=== PATIENT | female | born 1955 | race Caucasian/White ===

== ENCOUNTER 2021-06-16 08:07 | Outpatient (REF) | payer BC, SELFPAY ==
[2021-06-16 08:38] LABS: MANUAL DIFF FLAG NO
[2021-06-16 09:33] LABS: Basophils Percent Auto 0.3 % (0-2); Eosinophils Absolute Auto 0.2 X10*3/uL (0.0-0.4); Eosinophils Percent Auto 2.6 % (0-4); Hematocrit 43.2 % (37.0-47.0); Hemoglobin 13.5 g/dl (12.0-16.0); Imm Gran Abs Auto 0.02 X10*3/uL (0.00-0.03); Imm Gran Pct Auto 0.3 % (0.0-0.4); Lymphocytes Absolute Auto 2.4 X10*3/uL (1.2-4.9); Lymphocytes Percent Auto 34.1 % (20-40); Mean Corpuscular HGB Conc 31.3 g/dl (31.0-35.0); Mean Corpuscular Hemoglobin 28.2 pg (27.0-33.0); Mean Corpuscular Volume 90.4 fL (80.0-98.0); Mean Platelet Volume 11.3 fL (9.4-12.3); Monocytes Absolute Auto 0.6 X10*3/uL (0.1-1.2); Monocytes Percent Auto 8.1 % (2-11); Neutrophils Absolute Auto 3.8 x10*3/uL (2.0-8.3); Neutrophils Percent Auto 54.6 % (45-73); Platelet Count 199 X10*3/uL (160-400); Red Blood Count 4.78 X10*6/uL (4.20-5.50); Red Cell Distribution Width 13.7 % (11.0-16.0)
[2021-06-16 09:59] LABS: Alanine Aminotransferase 14 U/L (0-31); Albumin Level 4.1 g/dL (3.5-5.0); Alkaline Phosphatase 54 U/L (39-117); Anion Gap 11 (12-20); Aspartate Amino Transferase 17 U/L (5-31); Bilirubin Total 0.7 mg/dL (0.0-1.0); Blood Urea Nitrogen 15 mg/dL (9-16); Calcium 9.4 mg/dL (8.4-10.2); Carbon Dioxide 29 mmol/L (22-29); Chloride 106 mmol/L (96-108); Cholesterol 175 mg/dL; Estimated Glomerular Filt Rate > 60; Glucose Fasting 86 mg/dL (60-99); HDL Cholesterol 41 mg/dL; LDL Cholesterol Calculated 117 mg/dl; Potassium 4.6 mmol/L (3.3-5.1); Sodium 141 mmol/L (135-145); Total Protein 7.3 g/dL (6.5-8.0); Triglycerides 85 mg/dL
[2021-06-16 10:14] LABS: Vitamin D 25-OH Total 31.9 ng/mL (>30)
== END 2021-06-16 08:08 | disposition home or self-care (01) ==
LOC: HO.LAB 08:07
PROVIDERS: PCP Internal Medicine; Visit Provider Internal Medicine
DX: Z00.00 Encounter for general adult medical examination without abnormal findings (principal); E55.9 Vitamin D deficiency, unspecified
CPT/HCPCS: 36415; 80053; 80061; 82306; 85025

== ENCOUNTER 2022-07-27 08:49 | Outpatient (REF) | payer BC, SELFPAY ==
[2022-07-27 12:16] LABS: MANUAL DIFF FLAG NO
[2022-07-27 12:25] LABS: Basophils Percent Auto 0.2 % (0-2); Eosinophils Absolute Auto 0.1 X10*3/uL (0.0-0.4); Hematocrit 42.9 % (37.0-47.0); Hemoglobin 13.6 g/dl (12.0-16.0); Imm Gran Abs Auto 0.01 X10*3/uL (0.00-0.03); Imm Gran Pct Auto 0.2 % (0.0-0.4); Lymphocytes Absolute Auto 2.5 X10*3/uL (1.2-4.9); Lymphocytes Percent Auto 38.5 % (20-40); Mean Corpuscular HGB Conc 31.7 g/dl (31.0-35.0); Mean Corpuscular Hemoglobin 28.6 pg (27.0-33.0); Mean Corpuscular Volume 90.3 fL (80.0-98.0); Monocytes Absolute Auto 0.5 X10*3/uL (0.1-1.2); Monocytes Percent Auto 8.1 % (2-11); Neutrophils Absolute Auto 3.3 x10*3/uL (2.0-8.3); Platelet Count 207 X10*3/uL (160-400); Red Blood Count 4.75 X10*6/uL (4.20-5.50); Red Cell Distribution Width 13.7 % (11.0-16.0); White Blood Count 6.4 X10*3/uL (4.8-10.8)
[2022-07-27 12:47] LABS: Alanine Aminotransferase 16 U/L (0-31); Alkaline Phosphatase 58 U/L (39-117); Anion Gap 11 (12-20); Aspartate Amino Transferase 17 U/L (5-31); Bilirubin Total 0.6 mg/dL (0.0-1.0); Blood Urea Nitrogen 12 mg/dL (9-16); Calcium 9.1 mg/dL (8.4-10.2); Carbon Dioxide 28 mmol/L (22-29); Chloride 109 mmol/L (96-108); Cholesterol 167 mg/dL; Estimated Glomerular Filt Rate > 60; Glucose Fasting 88 mg/dL (60-99); HDL Cholesterol 36 mg/dL; LDL Cholesterol Calculated 108 mg/dl; Potassium 4.6 mmol/L (3.3-5.1); Sodium 143 mmol/L (135-145); Total Protein 6.9 g/dL (6.5-8.0); Triglycerides 115 mg/dL
== END 2022-07-27 08:50 | disposition home or self-care (01) ==
LOC: HO.HMGCLDS 08:49
PROVIDERS: PCP Internal Medicine; Visit Provider Internal Medicine
DX: Z00.00 Encounter for general adult medical examination without abnormal findings (principal); Z20.2 Contact with and (suspected) exposure to infections with a predominantly sexual mode of transmission
CPT/HCPCS: 36415; 80053; 80061; 85025

== ENCOUNTER 2022-08-26 11:13 | Outpatient (REF) | payer BC, SELFPAY ==
--- NOTE | ~2022-08-26 | XR_ITS ---
EXAMINATION: XR CHEST CLINICAL INFORMATION: SOB COMPARISON: None available. TECHNIQUE: 2 views of the chest were obtained. FINDINGS: The lungs are well-expanded and clear. The heart size and pulmonary vascularity is normal. There is mild S-shaped scoliosis of dorsolumbar spine. No lytic or sclerotic process. There is evidence of previous cholecystectomy. XR/XR chest 2V IMPRESSION: Unremarkable chest exam.
== END 2022-08-26 11:14 | disposition home or self-care (01) ==
LOC: HO.XRAY 11:13
PROVIDERS: PCP Internal Medicine; Visit Provider Internal Medicine
DX: R06.02 Shortness of breath (principal); U07.1 COVID-19
CPT/HCPCS: 71046

== ENCOUNTER 2023-03-21 14:09 | Outpatient (REF) | payer BC, SELFPAY ==
--- NOTE | ~2023-03-21 | XR_ITS ---
EXAMINATION: XR FOOT, LEFT CLINICAL INFORMATION: Pain COMPARISON: None available. TECHNIQUE: AP, lateral, and oblique views of the left foot. FINDINGS: No acute visible fracture dislocation. Multi joint arthritic changes. Plantar calcaneal heel spur. Achilles tendon enthesopathy. Spurring the dorsal midfoot. Joint spaces and alignment are otherwise maintained. Soft tissues are unremarkable. XR/XR foot LT min 3V IMPRESSION: 1. No acute visible fracture dislocation. 2. Multi joint arthritic changes with plantar calcaneal heel spur and Achilles tendon enthesopathy.
== END 2023-03-21 14:10 | disposition home or self-care (01) ==
LOC: HO.HMGCX 14:09
PROVIDERS: PCP Internal Medicine; Visit Provider Internal Medicine
DX: M79.672 Pain in left foot (principal)
CPT/HCPCS: 73630

== ENCOUNTER 2023-07-25 09:49 | Outpatient (REF) | payer BC, SELFPAY ==
[2023-07-25 13:37] LABS: MANUAL DIFF FLAG NO
[2023-07-25 13:42] LABS: Basophils Percent Auto 0.3 % (0-2); Eosinophils Absolute Auto 0.2 X10*3/uL (0.0-0.4); Eosinophils Percent Auto 2.6 % (0-4); Hematocrit 42.1 % (37.0-47.0); Hemoglobin 13.2 g/dl (12.0-16.0); Imm Gran Abs Auto 0.01 X10*3/uL (0.00-0.03); Imm Gran Pct Auto 0.1 % (0.0-0.4); Lymphocytes Absolute Auto 2.7 X10*3/uL (1.2-4.9); Lymphocytes Percent Auto 37.3 % (20-40); Mean Corpuscular HGB Conc 31.4 g/dl (31.0-35.0); Mean Corpuscular Hemoglobin 28.6 pg (27.0-33.0); Mean Corpuscular Volume 91.3 fL (80.0-98.0); Mean Platelet Volume 11.4 fL (9.4-12.3); Monocytes Absolute Auto 0.4 X10*3/uL (0.1-1.2); Neutrophils Percent Auto 53.7 % (45-73); Platelet Count 193 X10*3/uL (160-400); Red Blood Count 4.61 X10*6/uL (4.20-5.50); Red Cell Distribution Width 14.3 % (11.0-16.0); White Blood Count 7.4 X10*3/uL (4.8-10.8)
[2023-07-25 14:27] LABS: Alanine Aminotransferase 17 U/L (0-31); Albumin Level 3.7 g/dL (3.5-5.0); Alkaline Phosphatase 55 U/L (39-117); Anion Gap 9 (12-20); Aspartate Amino Transferase 18 U/L (5-31); Bilirubin Total 0.4 mg/dL (0.0-1.0); Blood Urea Nitrogen 13 mg/dL (9-16); Calcium 9.1 mg/dL (8.4-10.2); Carbon Dioxide 26 mmol/L (22-29); Chloride 110 mmol/L (96-108); Cholesterol 181 mg/dL (<200); Estimated Glomerular Filt Rate > 60; Glucose Random 89 mg/dL (60-115); Potassium 4.1 mmol/L (3.3-5.1); Sodium 141 mmol/L (135-145); Total Protein 7.2 g/dL (6.5-8.0)
== END 2023-07-25 09:50 | disposition home or self-care (01) ==
LOC: HO.HMGCLDS 09:49
PROVIDERS: PCP Internal Medicine; Visit Provider Internal Medicine
DX: I10 Essential (primary) hypertension (principal); J06.9 Acute upper respiratory infection, unspecified
CPT/HCPCS: 36415; 80053; 82465; 85025

== ENCOUNTER 2023-11-18 07:25 | Day surgery (SDC) | payer BC, SELFPAY ==
--- NOTE | 2023-11-17 12:18 | P.CONAN_ITS ---
Documented by User: Celi Cantrell NP 11/17/23 12:18 HPI - Anesthesia Eval Consult details Narrative: 68yo F for Colonoscopy [facility] Past Medical History Medical History Seasonal allergies Hx of hemorrhoids HTN (hypertension) Surgical History Surgical History Hx of cholecystectomy Hx of tonsillectomy H/O colonoscopy Social History Social History Patient Tobacco Use Status: Never used Tobacco Use of substances other than those prescribed or required for medical reasons: No Are you DNR?: No Advance Directives: No Advance Directives Information Provided: Yes Meds Allergies Allergy/AdvReac Type Severity Reaction Status Date / Time No Known Allergies Allergy Verified 11/18/23 07:39 seasonal Allergy Unknown Itchy Eyes Uncoded 11/18/23 07:39 Home Medications ?Medication ?Instructions ?Recorded ?Confirmed ?Last Taken ?Type lisinopril 5 mg tablet 5 mg PO DAILY 11/17/23 11/17/23 Unknown History multivitamin 1 tab PO DAILY 11/17/23 11/17/23 Unknown History Assessment and Plan Assessment Anesthesia Assessment: Chart Reviewed Documented by User: Cruzito Bates MD 11/18/23 08:48 [facility] Past Medical History Medical History Seasonal allergies Hx of hemorrhoids HTN (hypertension) Family History Family history of problems with anesthesia: No Surgical History Surgical History Hx of cholecystectomy Hx of tonsillectomy H/O colonoscopy History of Problems with Anesthesia: No Social History Social History Patient Tobacco Use Status: Never used Tobacco Use of substances other than those prescribed or required for medical reasons: No Are you DNR?: No Advance Directives: No Advance Directives Information Provided: Yes Meds Allergies Allergy/AdvReac Type Severity Reaction Status Date / Time No Known Allergies Allergy Verified 11/18/23 07:39 seasonal Allergy Unknown Itchy Eyes Uncoded 11/18/23 07:39 Home Medications ?Medication ?Instructions ?Recorded ?Confirmed ?Last Taken ?Type lisinopril 5 mg tablet 5 mg PO DAILY 11/17/23 11/17/23 Unknown History multivitamin 1 tab PO DAILY 11/17/23 11/17/23 Unknown History Exam Airway Mallampati Class: II TM Dist: <=3cm Neck ROM: Full Loose/Missing/Broken Teeth: No Heart: ok Lungs: ok Assessment and Plan Assessment Anesthesia Assessment: Anesthesia Plan Discussed Final Anesthetic Review Family History of Problems with Anesthesia: No History of Problems with Anesthesia: No NPO: Yes ASA Class: II Final Preanesthetic Review: No Changes in Pt Med Stat, Meds/Allgs Chart Reviewed, Consent Obtained/Reviewed and Anes Risks/Benef Reviewed Patient Risk: Intermediate Procedure Risk: Low Anesthetic Plan Anesthetic Plan: MAC: and Agree w/ Assess. and Plan Disposition: Standard PACU
[2023-11-18 07:40] VITALS: BMI 34.9
[2023-11-18 07:49] VITALS: BP 127/72; PULSE 76; RESP 16; TEMP 36.2; O2SAT 94
[2023-11-18] MEDS: Lactated Ringers 1,000 ML 100 ML IVCONT (07:57)
--- NOTE | 2023-11-18 08:32 | MHC.SHP ---
Pre-Procedural Eval Section A - 24 Hr Update-Section A only Date of Service: 11/18/23 The patient is an INPATIENT: No Changes since office visit: No Cold of Flu in the past 2 weeks, No New Medical Problems, No Changes in Medication and No Patient answered all questions The patient has been examined within 24 hours of the surgical procedure. The History & Physical has been completed within 30 days and I have reviewed it.: No Section B - Complete if H&P > 30 days Chief Complaint: Encounter for screening for malignant neoplasm of Allergies: Allergies Allergy/AdvReac Type Severity Reaction Status Date / Time No Known Allergies Allergy Verified 11/18/23 07:39 seasonal Allergy Unknown Itchy Eyes Uncoded 11/18/23 07:39 Plan I have reviewed the history and physical and performed a pertinent physical examination on my patient. No changes have occurred unless specified. Time Spent With Patient Time: Total time managing care of this patient today ____ minutes.
[2023-11-18 09:11] VITALS: BP 95/55; PULSE 73; RESP 18; TEMP 36.2; O2SAT 95
[2023-11-18 09:16] VITALS: BP 123/76; PULSE 68; RESP 18; O2SAT 96
[2023-11-18 09:21] VITALS: BP 132/73; PULSE 68; RESP 18; O2SAT 97
[2023-11-18 09:26] VITALS: BP 134/79; PULSE 66; RESP 18; TEMP 36.3; O2SAT 96
--- NOTE | 2023-11-18 09:26 | OP_ITS ---
DATE OF SERVICE: 11/18/2023 SURGEON: Braydon Ashton MD INDICATIONS: Colon cancer screening. PREOPERATIVE DIAGNOSIS: POSTOPERATIVE DIAGNOSIS: PROCEDURE PERFORMED: Colonoscopy to the terminal ileum. ESTIMATED BLOOD LOSS: COMPLICATIONS: ANESTHESIA: Medications, monitored anesthesia care. ASSISTANTS: SPECIMENS: DESCRIPTION OF PROCEDURE: A history and physical performed. The risks and benefits of the procedure were explained to the patient. Informed consent was obtained. The patient was placed in the left lateral decubitus position. A digital rectal exam was performed and was found to be normal. The Olympus pediatric video colonoscope was introduced into the rectum and advanced to the cecum. The cecum was identified by transillumination, palpation, and identification of ileocecal valve. Examination was performed. The scope was removed. She tolerated the procedure well and returned to recovery area in stable condition. FINDINGS: The terminal ileum was normal. The visualized colonic mucosa was normal. The quality of the prep was good. No polyps were identified. Retroflexed examination showed some hypertrophic anal papillae. IMPRESSION: Normal colonoscopy. RECOMMENDATION: 1. Follow up as needed. 2. Repeat colonoscopy is recommended in 5 years because of family history of colon cancer. MD BETTE Ramirez/DIANAL / [id number]
== END 2023-11-18 09:39 | disposition home or self-care (01) ==
PROVIDERS: PCP Internal Medicine; Visit Provider Internal Medicine Gastroenterology
PROC: 0DJD8ZZ Inspection of Lower Intestinal Tract, Via Natural or Artificial Opening Endoscopic (ICD-10-PCS; CPT 45378; principal; 2023-11-18 09:00)
DX: Z12.11 Encounter for screening for malignant neoplasm of colon (principal); Z80.0 Family history of malignant neoplasm of digestive organs; K62.89 Other specified diseases of anus and rectum; I10 Essential (primary) hypertension; J30.2 Other seasonal allergic rhinitis; Z90.49 Acquired absence of other specified parts of digestive tract
CPT/HCPCS: 45378; J2704

== ENCOUNTER 2024-03-03 13:46 | Outpatient (REF) | payer BC, SELFPAY | END 2024-03-03 13:47 | disposition home or self-care (01) | LOC: HO.US 13:46 | PROVIDERS: PCP Internal Medicine; Visit Provider Internal Medicine | DX: R10.31 Right lower quadrant pain (principal) | CPT/HCPCS: 76775 ==

== ENCOUNTER 2024-03-24 09:03 | Outpatient (REF) | payer BC, SELFPAY ==
[2024-03-24 10:15] LABS: Erythrocyte Sedimentation Rate 12 MM/HR (0-20)
[2024-03-24 10:26] LABS: Anion Gap 12 (12-20); Blood Urea Nitrogen 14 mg/dL (9-16); C Reactive Protein 1.06 mg/dL (< or = 0.50); Calcium 9.3 mg/dL (8.4-10.2); Carbon Dioxide 24 mmol/L (22-29); Chloride 109 mmol/L (96-108); Estimated Glomerular Filt Rate > 60; Glucose Random 95 mg/dL (60-115); Potassium 4.3 mmol/L (3.3-5.1); Sodium 141 mmol/L (135-145); Uric Acid 5.6 mg/dL (2.4-5.7)
== END 2024-03-24 09:04 | disposition home or self-care (01) ==
LOC: HO.LAB 09:03
PROVIDERS: PCP Internal Medicine; Visit Provider Internal Medicine
DX: M25.572 Pain in left ankle and joints of left foot (principal)
CPT/HCPCS: 36415; 80048; 84550; 85652; 86140

== ENCOUNTER 2025-01-20 12:50 | Outpatient (AMB) | payer BC, SELFPAY ==
--- OUTSIDE RECORDS SUMMARY | 2023-11-18 05:00 | XMS_ITS ---
Author Organization [facility] Address [address] [place] [address] Care Team Providers Care Back Winder Name Role Phone Katelyn (RETIRED) Geovanny GALLEGO Primary Care Provide r Unavailable Braydon Ashton Jr REASON FOR VISIT screening,fam hx colon ca Encounters Encounter Location Date Provider Diagnosis [facility] [place] [address] [place] [phone] 11/18/2023 Braydon Ashton Jr Colon cancer screening Z12.11 and Family history of colon cancer Z80.0 Assessments Encounter Date Diagnosis (ICD Code) Assessment Notes Treatment Notes Treatment Clinical Notes Section Notes 11/18/2023 Colon cancer screening (ICD-10 - Z12.11) 11/18/2023 Family history of colon cancer (ICD-10 - Z80.0) Plan Of Treatment No Information Progress Notes * FLORIDALMA TORRES RDOB:[birth year] (69 yo F)Acc No.[id number]:11/18/2023 COLON WITH MAC Patient: Jody GONSALVESVEGA FLORIDALMA Zamorano Provider: Aster Ashton MD :1955 A ge:68 Y S ex:Female Date:11/18/2023 Address: [address] [facility] Pcp:Geovanny Zepeda (RETIRED )MD Subjective: * Chief [...] 0 11/18/2023 Generated for Cesar gray/Abigail/Shaziaitting on: 0 01/20/2025 05:36 PM EDT
--- OUTSIDE RECORDS SUMMARY | 2024-07-13 04:30 | XMS_ITS ---
Author Organization [facility] Address [address] [place] [address] Care Team Providers Care Internet Specialist Name Role Phone Geovanny Zepeda MD Primary Care Provider Luh Kulkarni [phone] Encounters Encounter Location Date Provider Diagnosis [facility] [address] [facility] [place] [address] 07/13/2024 Luh Tamayo Plan Of Treatment No Information Progress Notes * Arnaldo TORRESOB: [birth year] (69 yo F)Acc No.[id number]:07/13/2024 Progress Notes Patient: Savanah OLIVEROS Provider: Ruiz Tamayo DPM :1955 A ge:68 Y S ex:Female Date:07/13/2024 Address:[address], [place] Pcp:Geovanny Zepeda MD Subjective: * Chief Complaints: [...] DPM Date: 0 07/13/2024 Generated for Printi ng/Faxing/eTransmitting on: 0 01/20/2025 05:35 PM EDT
--- OUTSIDE RECORDS SUMMARY | 2024-07-20 05:30 | XMS_ITS ---
Author Organization [facility] Address [address] [facility] [place] [address] Care Team Providers Care Farm Equipment Operator Name Role Phone Geovanny Zepeda MD Primary Care Provider Luh Kulkarni Unavailable [phone] Allergies Allergen (clinical drug ingredient) Drug/Non Drug [...] Negative Encounters Encounter Location Date Provider Diagnosis [facility] [address] [place] [address] 07/20/2024 Luh Tamayo Plan Of Treatment No Information Progress Notes * LIONELVEGAAixaLilaOB: [birth year] (69 yo F)Acc No.[id number]:07/20/2024 Progress Notes Patient: Jody GONSALVESVEGASavanah Provider: Ruiz Tamayo DPM :1955 A ge:68 Y S ex:Female Date:07/20/2024 Address: [address], [place] , [place] Pcp:Geovanny Zepeda MD Subjective: * Chief Complaints: [...] enies. C ardiovascular: Pacemaker d enies. M SUPERVISOR RESEARCH KENNEL d enies. W PW d enies. C [...] 1. 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
--- NOTE | 2025-01-20 08:27 | A.OFFPC_ITS ---
Vital Signs 01/20/25 13:09 Height 5 ft 4.5 in Weight 219 lb BMI 37.0 BP 134/80 Blood Pressure Location Rt brachial Position Sitting Pulse 87 Pulse Source Pulse Oximeter Temp 98.1 F Temp Source Temporal Artery Scan Pulse Oximetry (%) 98 Oxygen Delivery Method Room Air Intake Visit Reasons: Annual Device Repair Technician Required: No Accompanied by: Self / Same As Patient Allergies No Known Allergies Allergy (Verified 01/20/25 08:27) seasonal Allergy (Unknown, Uncoded 11/18/23 07:39) Itchy Eyes Medication List - Last Reconciled 01/24/25 by LUCY Constantino fluticasone propionate 50 mcg/actuation (Flonase Allergy Relief) 2 sprays intranasal DAILY lisinopril 5 mg PO DAILY multivitamin 1 tab PO DAILY tizanidine 4 mg PO BEDTIME PRN Tobacco use date assessed: 01/20/25 Fall risk assessment: No Falls in past year Last assessed Fall Risk: 01/20/25 Dental Screening Dental Screen Date: 01/20/25 Did you have a dental visit in the last 12 months?: Yes Did you have a dental problem in the last 6 months where you did not have access to dental care?: No HPI HPI Comments History of Present Illness Details The patient is a 69-year-old female with HTN, allergic rhinitis and obesity presenting with right flank pain and ankle swelling. The right flank pain began approximately a month and a half ago and is described as a stabbing, searing pain that occurs when transitioning from lying down to standing. The pain is severe enough to make getting out of bed difficult, but it subsides within a few minutes of standing. The patient denies any history of back injury or kidney stones, although a previous CT scan showed two cysts. The patient also reports significant swelling in the ankle, which is exacerbated by standing and alleviated with the use of a figure-8 brace or compression sleeve. She has a history of arthritis in both feet and tibial tendinitis, for which she attended physical therapy. X-rays taken in July confirmed the presence of arthritis. The patient has a history of hypertension, managed with lisinopril, and reports good blood pressure control. Her BP today was 134/70. She also experiences symptoms of allergic rhinitis, which are managed with Flonase, and occasional eustachian tube dysfunction related to allergies. Her last mammogram was conducted this summer, and she is due for a bone density test, as the last one was conducted a few years ago. Patient was informed and verbally consented to the use of an ambient scribe for clinic note documentation during this visit. [facility] Medical History (Updated 01/24/25 @ 03:32 by LUCY Constantino) Allergic rhinitis Ankle pain, left HTN (hypertension) Hx of hemorrhoids Obesity (BMI 30-39.9) Postmenopausal Right flank pain Seasonal allergies Surgical History H/O colonoscopy Hx of cholecystectomy Hx of tonsillectomy Family History (Updated 01/20/25 @ 13:12 by Wilma Gardiner MA) Mother No problems noted. Father No problems noted. Social History Housing: House Patient Tobacco Use Status: Former Tobacco user e-Cigarette/Vaping Use: Former Use service: No Current occupational status: retired Cognitive needs: No Hearing needs: No Vision needs: Yes (Rx glasses) Questionnaire PHQ-9 Over the last 2 weeks, how often have you been bothered by any of the following problems? 1. Little interest or pleasure in doing things: not at all 2. Feeling down, depressed, or hopeless: not at all 3. Trouble falling or staying asleep, or sleeping too much: not at all 4. Feeling tired or having little energy: not at all 5. Poor appetite or overeating: not at all 6. Feeling bad about yourself - or that you are a failure or have let yourself or your family down: not at all 7. Trouble concentrating on things, such as reading the newspaper or watching television: not at all 8. Moving or speaking so slowly that other people could have noticed. Or the opposite - being so fidgety or restless that you have been moving around a lot more than usual: not at all 9. Thoughts that you would be better off or of hurting yourself in some way: not at all Total score: 0 Source: Developed by Drs. Kevin Saravia, Tosha Gibson, Josse Mcclure and colleagues, with an educational yary from [employer]. Thrive Questionnaire Date Thrive assessed: 01/20/25 I am a: Patient Within the past 12 months, did the food you bought not last and you didn't have the money to get more?: Never true Within the past 12 months, did you worry whether your food would run out before you got money to buy more?: Never true Do you have trouble paying for medicines?: No Do you have trouble getting transportation to medical appointments?: No Do you have trouble paying your heating and electricity bill?: No Do you have trouble taking care of your child, family member or friend?: No Do you have trouble with day-to-day activities such as bathing, preparing meals, shopping, managing finances, etc.?: No Are you currently unemployed and looking for a job?: No Are you interested in more education?: No THRIVE Score: 0 AUDIT C Alcohol Use Questionnaire (AUDIT-C) 1. How often do you have a drink containing alcohol?: Never 3. How often do you have six or more drinks on one occasion?: Never Total Score: 0 BENJAMIN-7 AMB Questionnaire BENJAMIN-7 Date BENJAMIN - 7 assessed: 01/20/25 Feeling nervous, anxious, or on edge: 0 = Not at all Not being able to stop or control worryin = Not at all Worrying too much about different things: 0 = Not at all Trouble relaxin = Not at all Being so restless that it is hard to sit still: 0 = Not at all Becoming easily annoyed or irritable: 0 = Not at all Feeling afraid as if something awful might happen: 0 = Not at all Total BENJAMIN-7 score (0-4 normal; 5-9 mild; 10-14 moderate; 15-21 severe): 0 Source: Developed by Drs. Kevin Saravia, Tosha Gibson, Josse Mcclure and colleagues, with an educational yary from [employer]. Review of Systems Const Details: CONSTITUTIONAL Negative HEAD/NECK Negative EAR/NOSE/MOUTH/THROAT Reports eustachian tube dysfunction, denies hearing loss RESPIRATORY Denies cough, reports occasional dyspnea on exertion CARDIOVASCULAR Denies chest pain, reports regular heart rate GASTROINTESTINAL Denies constipation, diarrhea, or heartburn MUSCULOSKELETAL Negative NEUROLOGICAL Denies headaches or dizziness PSYCHIATRIC Negative Physical exam (Primary Care) Vital Signs: Last Vital Signs Temp 98.1 F 01/20/25 13:09 Pulse 87 01/20/25 13:09 BP 134/80 01/20/25 13:09 Pulse Ox 98 01/20/25 13:09 Oxygen Delivery Method Room Air 01/20/25 13:09 BMI result Body Mass Index 37.0 GENERAL Well developed, obese, in no apparent distress HEENT Head-Normocephalic Eyes- PERRLA, EOMI, Conjuctiva clear, lids WNL Ears- Canals clear, TMs WNL Mouth/Throat-No lesions, no erythema, no exudate Neck- Supple, No lymphadenopathy, thyroid WNL RESPIRATORY Normal I:E, Clear to auscultation CARDIOVASCULAR Regular, rate and rhythm, No murmurs or rubs GASTROINTESTINAL Soft, nontender, normal bowel sounds, no masses MUSCULOSKELETAL Back- nontender Ankle swelling noted, no fluid accumulation, good pulses and circulation NEUROLOGICAL Gait normal PSYCHIATRIC Oriented to person, place and time Mood and affect WNL Appearance WNL Speech WNL Thought processes WNL Tobacco/Smoking Status: Tobacco use Status Tobacco use date assessed 01/20/25 01/20/25 08:29 Patient Tobacco Use Status Former Tobacco user 01/20/25 13:14 e-Cigarette/Vaping Use Former Use 01/20/25 13:14 PHQ-9: PHQ-9 Score PHQ-9: Total score 0 01/20/25 13:14 Thrive Assessment: Date of Thrive Assessment Date Thrive assessed 01/20/25 01/20/25 08:29 Coding Level of Care Code New Pt New Pt Level 4 (80412) Patient Type New Diagnoses Right flank pain R10.9 Primary hypertension I10 Hypertension type: primary hypertension Ankle pain, left M25.572 Seasonal allergic rhinitis due to pollen J30.1 Allergic rhinitis trigger: pollen Allergic rhinitis seasonality: seasonal Obesity (BMI 30-39.9) E66.9 Time Spent (min) 30 Comment Time spent on chart review, medication reconciliation, H&P, patient education, orders Assessment & Plan Assessment & Plan (1) Right flank pain: Code(s): R10.9 - Unspecified abdominal pain Category: Medical Plan: An ultrasound of the kidneys is recommended to evaluate for stones or cysts, given the location of the pain and the presence of cysts on a previous CT scan. A muscle relaxant, tizanidine, is prescribed to be taken at bedtime to alleviate potential muscle-related pain. Patient to follow up in 2 months or sooner if symptoms persist or worsen. (2) HTN (hypertension): Comment: BP today was 134/70 Code(s): I10 - Essential (primary) hypertension Category: Medical Qualifiers: Hypertension type: primary hypertension Qualified Code(s): I10 - Essential (primary) hypertension Plan: The patient's blood pressure is well-controlled with lisinopril, and no changes to the medication regimen are necessary at this time. (3) Ankle pain, left: Code(s): M25.572 - Pain in left ankle and joints of left foot Category: Medical Plan: The patient is advised to continue using a figure-8 brace or compression sleeve to manage swelling and pain. No further imaging is planned unless symptoms worsen, as previous x-rays confirmed arthritis. (4) Allergic rhinitis: Code(s): J30.9 - Allergic rhinitis, unspecified Category: Medical Qualifiers: Allergic rhinitis trigger: pollen Allergic rhinitis seasonality: seasonal Qualified Code(s): J30.1 - Allergic rhinitis due to pollen Plan: Flonase is recommended to manage symptoms, and the patient is advised to monitor for any changes in symptoms. (5) Obesity (BMI 30-39.9): Comment: BMI today was 37.0 Code(s): E66.9 - Obesity, unspecified Category: Medical Plan: Discussed the health risks of obesity with the patient. Reviewed benefits of even moderate weight loss with the patient. Patient will gradually try and increase exercise to 30-40 min 5-7 times per week. We discussed they may need to break the exercise up into 2-3 sessions daily due to ankle pain. We discussed the patient adding more fruits and vegetables to their diet. Will monitor weight and follow up in 2 months Plan During the visit, we discussed the patient's right flank pain and the potential causes, including muscle strain and kidney issues. I recommended an ultrasound to evaluate the kidneys for stones or cysts. We also talked about the use of tizanidine to manage muscle-related pain. For the ankle swelling, the patient will continue using supportive devices, and no further imaging is planned unless symptoms worsen. We reviewed the patient's hypertension management, which is well-controlled with lisinopril. I advised the patient to use Flonase for allergic rhinitis symptoms and recommended a bone density test to assess for osteoporosis. Follow-up is planned in two months to review the results and assess the effectiveness of the treatment plan. Orders: Orders US renal RT 01/20/25 R10.9 - Unspecified abdominal pain, Z78.0 - Asymptomatic menopausal state XR DEXA axial skeleton 01/20/25 Z78.0 - Asymptomatic menopausal state Medications: New tizanidine 4 mg PO BEDTIME PRN 30 tabs 0RF muscle spasticity lisinopril 5 mg PO DAILY 90 tabs 2RF for blood pressure fluticasone propionate 50 mcg/actuation (Flonase Allergy Relief) administer into each nostril 2 sprays intranasal DAILY 16 grams 6RF for allergies Patient Instructions: - Continue using a figure-8 brace or compression sleeve for ankle support. - Take tizanidine at bedtime as prescribed. - Use Flonase for allergy symptoms as needed. - Schedule and attend the recommended ultrasound and bone density test. - Follow up in two months to review test results and treatment progress.
[2025-01-20 13:09] VITALS: BP 134/80; PULSE 87; TEMP 36.7; O2SAT 98; BMI 37.0
--- OUTSIDE RECORDS SUMMARY | 2025-01-20 17:36 | XMS_ITS | Patient Health Record ---
[facility] Organization [facility] Address [address] [place] [address] Care Team Providers Care Investment Accounting Clerk Name Role Phone Geovanny Zepeda MD Primary Care Provider Luh Kulkarni Unavailable [phone] Allergies Allergen (clinical drug ingredient) Drug/Non Drug Allergy documented on EMR Reaction Allergy Type Onset Date Status Latex Latex Unknown Allergy Active Reason For Referral No Information Medications Medication SIG (Take, Route, Frequency, Duration) Notes Start Date End Date Status Physical Therapy . . . 2-3x/week; Duration: 3-4 weeks 07/20/2024 Not-Taking ASO Ankle/Foot Stablizing AFO As directed Wear Daily; Duration: as needed 07/20/2024 Active Lisinopril 5 MG 2 tablets Orally Onc e a day Active Ibuprofen 800 MG 1 tablet Orally Thre e times a day; Duration: 30 day(s) 07/20/2024 Active Fluticasone Propionate Active Social History Tobacco Use: Social History [...] ast year? No Points 0 Interpretation Negative Problems Problem Type SNOMED Code ICD Code Onset Dates Problem Status W/U Status Risk Notes Problem Localized, primary osteoarthritis of the ankle and/or foot (452361410) Osteoarthritis of right ankle and foot (M19.071) Active confirmed Vital Signs Blood pressure diastolic 80 mm Hg 09/16/2024 Height 5ft 5in in 09/16/2024 Blood pressure systolic 127 mm Hg 09/16/2024 Weight 200 lbs 09/16/2024 BMI 33.28 kg/m2 09/16/2024 Encounters Encounter Location Date Provider Diagnosis [address] [address] 07/20/2024 Luh Perica Pain in left foot M79.672 ; Posterior tibial tendinitis of left lower extremity M76.822 ; Hypertrophy of bone, left ankle and foot M89.372 ; Flat foot [pes planus] (acquired), left foot M21.42 and Osteoarthritis of right ankle and foot M19.[address] [address] 09/16/2024 Luh Perica Pain in left foot M79.672 ; Posterior tibial tendinitis of left lower extremity M76.822 ; Hypertrophy of bone, left ankle and foot M89.372 and Flat foot [pes planus] (acquired), left foot M21.[address] [address] 05/06/2024 Luh Tamayo [address] [address] 09/16/2024 Luh Tamayo Assessments Encounter Date Diagnosis (ICD Code) Assessment Notes Treatment Notes Treatment Clinical Notes Section Notes 07/20/2024 Pain in left foot (ICD-10 - M79.672) 07/20/2024 Posterior tibial tendinitis of left lower extremity (ICD-10 - M76.822) 09/16/2024 Pain in left foot (ICD-10 - M79.672) 09/16/2024 Posterior tibial tendinitis of left lower extremity (ICD-10 - M76.822) 09/16/2024 Hypertrophy of bone, left ankle and foot (ICD-10 - M89.372) 07/20/2024 Hypertrophy of bone, left ankle and foot (ICD-10 - M89.372) 07/20/2024 Flat foot [pes planus] (acquired), left foot (ICD-10 - M21.42) 09/16/2024 Flat foot [pes planus] (acquired), left foot (ICD-10 - M21.42) 07/20/2024 Osteoarthritis of right ankle and foot (ICD-10 - M19.071) Plan Of Treatment Pending Test Test Name Order Date X ray : Foot, left 3V 07/20/2024 Insurance Providers Payer Name Payer Address Payer Phone Subscriber Number Group Number Insured Name Patient Relationship to Insured Coverage Start Date Coverage End Date [facility] All Others [address] [place] [address] [id number] Savanah Holden Self - patient is the insured 4 Medical (General) History Medical History History ICD Code Arthritis Broken bones covid-19 Gall bladder problems High Blood Pressure Chicken pox Surgical History Surgery Date(Month/Year) Tonsils 1975 Gall bladder
--- OUTSIDE RECORDS SUMMARY | 2025-01-20 17:36 | XMS_ITS | Patient Health Record ---
Author Organization [facility] Address [address] [place] [address] Care Team Providers Care Racing Board Marker Name Role Phone Katelyn (RETIRED) Geovanny GALLEGO Primary Care Provide r Unavailable Braydon Ashton Jr Unavailable [phone] Allergies No Known Allergies Reason For Referral No Information Medications Medication SIG (Take, Route, Frequency, Duration) Notes Start Date End Date Status MiraLax (colon prep) 17 GM/SCOOP mixed with Gatorade or Crystal Light Orally begin at 5:00 p.m. the day before the procedure for 1 day 10/23/2023 Active Multivitamin Active Lisinopril 5 MG 1 tablet Orally Once a day Active Problems Problem Type SNOMED Code ICD Code Onset Dates Problem Status W/U Status Risk Notes Problem 097660858 Colon cancer screening (Z12.11) Active confirmed Problem 425547405 Encounter for other preprocedural examination (Z01.818) Active confirmed Problem 61979022 Bleeding hemorrhoids (K64.9) Active confirmed Problem 642307406 FH: colon cancer (Z80.0) Active confirmed Plan Of Treatment Future Test Test Name Order Date COLONOSCOPY 02/09/2015 COLONOSCOPY 10/23/2023 Insurance Providers Payer Name Payer Address Payer Phone Subscriber Number Group Number Insured Name Patient Relationship to Insured Coverage Start Date Coverage End Date [facility] [address] [place], [place] [id number] FLORIDALMA EPNNY Self - patient is the insured Medical (General) History Medical History History ICD Code Hypertension Seasonal allergies Hemorrhoids Surgical History Surgery Date(Month/Year) tonsillectomy cholecystectomy
== END 2025-01-20 13:35 | disposition home or self-care (01) ==
LOC: HO.HMCHD 12:50
PROVIDERS: PCP Internal Medicine; Visit Provider Physician Assistant Medical
DX: R10.9 Unspecified abdominal pain (principal); I10 Essential (primary) hypertension; E66.9 Obesity, unspecified; Z68.37 Body mass index [BMI] 37.0-37.9, adult; M25.572 Pain in left ankle and joints of left foot; J30.1 Allergic rhinitis due to pollen

== ENCOUNTER 2025-03-09 08:23 | Outpatient (REF) | payer BC, SELFPAY ==
--- OUTSIDE RECORDS SUMMARY | 2023-11-18 04:00 | XMS_ITS ---
Author Organization [facility] Address [address] [place] [address] Care Team Providers Care Agronomy Technician Name Role Phone Katelyn (RETIRED) Geovanny GALLEGO Primary Care Provide r Unavailable Braydon Ashton Jr REASON FOR VISIT screening,fam hx colon ca Encounters Encounter Location Date Provider Diagnosis [facility] [address] [place] [phone] 11/18/2023 Braydon Ashton Jr Colon cancer screening Z12.11 and Family history of colon cancer Z80.0 Assessments Encounter Date Diagnosis (ICD Code) Assessment Notes Treatment Notes Treatment Clinical Notes Section Notes 11/18/2023 Colon cancer screening (ICD-10 - Z12.11) 11/18/2023 Family history of colon cancer (ICD-10 - Z80.0) Plan Of Treatment No Information Progress Notes * FLORIDALMA TORRES RDOB:[birth year] (69 yo F)Acc No.[id number]:11/18/2023 COLON WITH MAC Patient: Jody GONSALVESVEGA FLORIDALMA Zamorano Provider: Aster Ashton MD :1955 A ge:68 Y S ex:Female Date:11/18/2023 Address: [address] [facility] Pcp:Geovanny Zepeda (RETIRED )MD Subjective: * Chief Complaints: * 1 . Screening,fam hx colon ca. * Medical History: Objective: * Vitals: Assessment: * Assessment: 1. C olon cancer screening - Z12.11 (Primary) 2 . F amily history of colon cancer - Z80.0 Plan: * Treatment: * Procedure Codes: 4 5378 DIAGNOSTIC COLONOSCOPY * * The named appointment provid er may or may not be the originator of this progress note, and it is not deemed complete until electronically signed by the appointment provider. Sign off status: Pending * Provider: Aster Ashton MD Date: 0 11/18/2023 Generated for Cesar gray/Abigail/Shaziaitting on: 05/09/2024 08:34 AM EST
--- OUTSIDE RECORDS SUMMARY | 2024-07-13 03:30 | XMS_ITS ---
Author Organization [facility] Address [address] [place] [address] Care Team Providers Care Braider Tender Name Role Phone Geovanny Zepeda MD Primary Care Provider Luh Kulkarni [phone] Encounters Encounter Location Date Provider Diagnosis [facility] [address] [place] [address] 07/13/2024 Luh Tamayo Plan Of Treatment No Information Progress Notes * Arnaldo TORRESOB: [birth year] (69 yo F)Acc No.[id number]:07/13/2024 Progress Notes Patient: Savanah OLIVEROS Provider: Ruiz Tamayo DPM :1955 A ge:68 Y S ex:Female Date:07/13/2024 Address:[address], [place] Pcp:Geovanny Zepeda MD Subjective: * Chief Complaints: [...] 0 07/13/2024 Generated for Printi ng/Faannitag/eTransmitting on: 1 05/09/2024 08:33 AM EST
--- OUTSIDE RECORDS SUMMARY | 2024-07-20 04:30 | XMS_ITS ---
Author Organization [facility] Address [address] [place] [address] Care Team Providers Care Comparator Operator Name Role Phone Geovanny Zepeda MD Primary Care Provider Luh Kulkarni Unavailable [phone] Allergies Allergen (clinical drug ingredient) Drug/Non Drug [...] Negative Encounters Encounter Location Date Provider Diagnosis [facility] [address] [place] [address] 07/20/2024 Luh Tamayo Plan Of Treatment No Information Progress Notes * LIONELVEGAAixaLilaOB: [birth year] (69 yo F)Acc No.[id number]:07/20/2024 Progress Notes Patient: Jody GONSALVESVEGASavanah Provider: Ruiz Tamayo DPM :1955 A ge:68 Y S ex:Female Date:07/20/2024 Address: [address], [place] , [place] Pcp:Geovanny Zepeda MD Subjective: * Chief Complaints: [...] enies. C ardiovascular: Pacemaker d enies. M APPLICATION DBA d enies. W PW d enies. C [...] 1. 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
--- NOTE | ~2025-03-09 | US_ITS ---
CLINICAL HISTORY: R10.9 - right flank pain US Renal Comparison: US/SR - US KIDNEY BILATERAL - 03/03/24 14:23 EST Findings: Right kidney normal size and echotexture, 11.2 cm length. Normal color Doppler flow. No hydronephrosis. Lower pole cyst (1.6 cm), Predominantly anechoic with increased through transmission, suggesting simple cyst requiring no follow-up. Left kidney not evaluated on this exam. The bladder is not evaluated on this exam. IMPRESSION: No right hydronephrosis. This document has been electronically signed by: Chidi Singh MD on 03/09/2025 22:01:04
--- OUTSIDE RECORDS SUMMARY | 2025-03-09 08:33 | XMS_ITS | Patient Health Record ---
Author Organization [facility] Address [address] [place] [address] Care Team Providers Care Tracer Bullet Charging Machine Operator Name Role Phone Geovanny Zepeda MD Primary Care Provider Luh Kulkarni Unavailable [phone] Allergies Allergen (clinical drug ingredient) Drug/Non Drug [...] primary osteoarthritis of the ankle and/or foot (910453057) Osteoarthritis of right ankle and foot (M19.071) Active confirmed Vital Signs Blood pressure diastolic 80 mm Hg 09/16/2024 Height 5ft 5in in 09/16/2024 Blood pressure systolic 127 mm Hg 09/16/2024 Weight 200 lbs 09/16/2024 BMI 33.28 kg/m2 09/16/2024 Encounters Encounter Location Date Provider Diagnosis [address] [address] 07/20/2024 Luh Perica Pain in left foot M79.672 ; Posterior tibial tendinitis of left lower extremity M76.822 ; Hypertrophy of bone, left ankle and foot M89.372 ; Flat foot [pes planus] (acquired), left foot M21.42 and Osteoarthritis of right ankle and foot M19.[address] [address] 09/16/2024 Luh Perica Pain in left foot M79.672 ; Posterior tibial tendinitis of left lower extremity M76.822 ; Hypertrophy of bone, left ankle and foot M89.372 and Flat foot [pes planus] (acquired), left foot M21.[address] [address] 05/06/2024 Luh Tamayo [address] [address] 09/16/2024 Luh Tamayo Assessments Encounter Date Diagnosis [...] Insured Coverage Start Date Coverage End Date [facility] All Others [address] [place] [address] [phone] [id number] Savanah Holden Self - patient is the insured 4 Medical (General) History Medical History History ICD Code Arthritis Broken bones covid-19 Gall bladder problems High Blood Pressure Chicken pox Surgical History Surgery Date(Month/Year) Tonsils 1975 Gall bladder
--- OUTSIDE RECORDS SUMMARY | 2025-03-09 08:34 | XMS_ITS | Patient Health Record ---
Author Organization [facility] Address [address] [place] [address] Care Team Providers Care News Correspondent Name Role Phone Katelyn (RETIRED) Geovanny GALLEGO Primary Care Provide r Unavailable Braydon Ashton Jr Unavailable [phone] Allergies No Known Allergies Reason For Referral No Information Medications Medication SIG (Take, Route, Frequency, Duration) Notes Start Date End Date Status MiraLax (colon prep) 17 GM/SCOOP mixed with Gatorade or Crystal Light Orally begin at 5:00 p.m. the day before the procedure; Duration: 1 day 10/23/2023 Active Multivitamin Active Lisinopril 5 MG 1 tablet Orally Once a day Active Problems Problem Type SNOMED Code ICD Code Onset Dates Problem Status W/U Status Risk Notes Problem Colon cancer screening (829915075) Colon cancer screening (Z12.11) Active confirmed Problem Pre-procedure evaluation check (262145697) Encounter for other preprocedural examination (Z01.818) Active confirmed Problem Bleeding hemorrhoids (55587435) Bleeding hemorrhoids (K64.9) Active confirmed Problem Family history of malignant neoplasm of gastrointestinal tract (273032622) FH: colon cancer (Z80.0) Active confirmed Plan Of Treatment Future Test Test Name Order Date COLONOSCOPY 02/09/2015 COLONOSCOPY 10/23/2023 Insurance Providers Payer Name Payer Address Payer Phone Subscriber Number Group Number Insured Name Patient Relationship to Insured Coverage Start Date Coverage End Date [facility] [address] [place], [place] [id number] [phone] [id number] FLORIDALMA PENNY Self - patient is the insured Medical (General) History Medical History History ICD Code Hypertension Seasonal allergies Hemorrhoids Surgical History Surgery Date(Month/Year) tonsillectomy cholecystectomy
== END 2025-03-09 08:24 | disposition home or self-care (01) ==
LOC: HO.HMGCX 08:23
PROVIDERS: PCP Physician Assistant Medical; Visit Provider Physician Assistant Medical
DX: R10.9 Unspecified abdominal pain (principal); Z78.0 Asymptomatic menopausal state
CPT/HCPCS: 76775

== ENCOUNTER → 2025-03-09 08:26 | Outpatient (BNV) | payer BC, SELFPAY | PROVIDERS: PCP Physician Assistant Medical; Visit Provider Student in an Organized Health Care Education/Training Program | DX: R10.9 Unspecified abdominal pain (principal) | CPT/HCPCS: 76775 ==

== ENCOUNTER 2025-03-15 08:45 | Outpatient (AMB) | payer BC, SELFPAY ==
--- NOTE | 2025-03-15 08:48 | MHC.PC.OV ---
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 Required: No Accompanied by: Self / Same As Patient Allergies No Known Allergies Allergy (Verified 03/15/25 08:49) seasonal Allergy (Unknown, Uncoded 11/18/23 07:39) Itchy Eyes Medication List - Last Reconciled 03/15/25 by LUCY Constantino diclofenac sodium 1% (Voltaren Arthritis Pain) 2 grams topical QID fluticasone propionate 50 mcg/actuation (Flonase Allergy Relief) 2 sprays intranasal DAILY PRN lisinopril 5 mg PO DAILY multivitamin 1 tab PO DAILY Tobacco use date assessed: 01/20/25 Dental Screening Dental Screen Date: 01/20/25 HPI HPI Comments History of Present Illness Details History of Present Illness The patient is a 69-year-old female with HTN, allergic rhinitis and obesity presenting for follow-up of back pain and a recent, resolved episode of vertigo. She experienced intense, room-spinning dizziness throughout January, which caused her to fall back on a couple of occasions when sitting up in the morning and required her to hold onto dawn to maintain balance. The episode resolved spontaneously in the first week of February. During this period of dizziness, her chronic back pain had disappeared. The patient's back pain returned after the vertigo subsided and is predominantly present upon waking. The pain is rated as a 5/10 and is described as a nuisance. It can also be triggered by certain movements or bending over. A trial of a muscle relaxer, Tizanidine was not effective because its effects wore off by the morning. A past ultrasound was normal, aside from a small, stable, and asymptomatic cyst on her right kidney, which is considered benign. The patient has a history of hypertension, which was initially diagnosed due to dizziness, though past episodes were never as intense as the one in January. She reports good adherence to lisinopril, which she takes at night to avoid dizziness as a side effect. Her BP today was 130/76. Health Maintenance Orders for lab work were placed, which can be done non-fasting. A printed order for her upcoming bone density (DEXA) scan was provided as requested by the imaging facility. A follow-up visit is scheduled in four months to account for an anticipated change in her insurance. 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 - Refrained from driving during her recent episode of vertigo. Patient was informed and verbally consented to the use of an ambient scribe for clinic note documentation during this visit. / [facility] Medical History (Updated 03/15/25 @ 09:29 by LUCY Constantino) Allergic rhinitis Ankle pain, left Health care maintenance HTN (hypertension) Hx of hemorrhoids Medication management Obesity (BMI 30-39.9) Postmenopausal Right flank pain Seasonal allergies Vertigo Surgical History (Updated 03/14/25 @ 16:15 by Batool Michaud) H/O colonoscopy (~11/18/23) Hx of cholecystectomy Hx of tonsillectomy Family History (Updated 01/20/25 @ 13:12 by Wilma Gardiner MA) Mother No problems noted. Father No problems noted. Social History Housing: House Patient Tobacco Use Status: Former Tobacco user e-Cigarette/Vaping Use: Former Use service: No Current occupational status: retired Cognitive needs: No Hearing needs: No Vision needs: Yes (Rx glasses) Questionnaire PHQ-9 Over the last 2 weeks, how often have you been bothered by any of the following problems? 1. Little interest or pleasure in doing things: not at all 2. Feeling down, depressed, or hopeless: not at all 3. Trouble falling or staying asleep, or sleeping too much: not at all 4. Feeling tired or having little energy: not at all 5. Poor appetite or overeating: not at all 6. Feeling bad about yourself - or that you are a failure or have let yourself or your family down: not at all 7. Trouble concentrating on things, such as reading the newspaper or watching television: not at all 8. Moving or speaking so slowly that other people could have noticed. Or the opposite - being so fidgety or restless that you have been moving around a lot more than usual: not at all 9. Thoughts that you would be better off or of hurting yourself in some way: not at all Total score: 0 Depression Screening Interpretation: Negative Depression Screening Done: Yes Source: Developed by Drs. Kevin Saravia, Josse Gautam and colleagues, with an educational yary from [employer]. Thrive Questionnaire Date Thrive assessed: 01/20/25 BENJAMIN-7 AMB Questionnaire BENJAMIN-7 Date BENJAMIN - 7 assessed: 01/20/25 Source: Developed by Drs. Kevin Saravia, Josse Gautam and colleagues, with an educational yary from [employer]. Review of Systems Narrative Review of Systems - Neurological: Reports a resolved, month-long episode of intense, room-spinning vertigo which caused falls. Reports a history of less intense dizziness. Denies current vertigo. - Musculoskeletal: Reports intermittent back pain, which is worse upon waking and has a severity of up to 5/10. - Allergic/Immunologic: Denies allergy symptoms. Physical exam (Primary Care) Vital Signs: Last Vital Signs Temp 98.2 F 03/15/25 08:53 Pulse 91 03/15/25 08:53 Resp 18 03/15/25 08:53 BP 130/76 03/15/25 08:53 Pulse Ox 96 03/15/25 08:53 Oxygen Delivery Method Room Air 03/15/25 08:53 BMI result Body Mass Index 37.9 GENERAL Well developed, obese, in no apparent distress HEENT Head-Normocephalic Eyes- PERRLA, EOMI, Conjuctiva clear, lids WNL Ears- Canals clear, TMs WNL Mouth/Throat-No lesions, no erythema, no exudate Neck- Supple, No lymphadenopathy, thyroid WNL RESPIRATORY Normal I:E, Clear to auscultation CARDIOVASCULAR Regular, rate and rhythm, No murmurs or rubs GASTROINTESTINAL Soft, nontender, normal bowel sounds, no masses MUSCULOSKELETAL Back-Normal ROM, NonTender to palpation, Tender with motion, Straight leg raise negative, DTR 2+ symmetrical, Gait normal NEUROLOGICAL Gait normal PSYCHIATRIC Oriented to person, place and time Mood and affect WNL Appearance WNL Speech WNL Thought processes WNL Tobacco/Smoking Status: Tobacco use Status Tobacco use date assessed 01/20/25 03/15/25 08:49 Patient Tobacco Use Status Former Tobacco user 03/15/25 08:49 e-Cigarette/Vaping Use Former Use 03/15/25 08:49 Depression Screening Interpretation: Negative Thrive Assessment: Date of Thrive Assessment Date Thrive assessed 01/20/25 03/15/25 08:49 Results Reviewed Results Reviewed: Ordering Physician: Lauren Beltran Date of Service: 03/09/25 Procedure(s): US renal RT Accession Number(s): [id number] cc: Lauren Beltran~ Reason for Exam: R10.9 - right flank pain CLINICAL HISTORY: R10.9 - right flank pain US Renal Comparison: US/SR - US KIDNEY BILATERAL - 03/03/24 14:23 EST Findings: Right kidney normal size and echotexture, 11.2 cm length. Normal color Doppler flow. No hydronephrosis. Lower pole cyst (1.6 cm), Predominantly anechoic with increased through transmission, suggesting simple cyst requiring no follow-up. Left kidney not evaluated on this exam. The bladder is not evaluated on this exam. IMPRESSION: No right hydronephrosis. This document has been electronically signed by: Chidi Singh MD on Coding Level of Care Code Established Pt Est Pt Level 4 (07208) Patient Type Established Diagnoses Primary hypertension I10 Hypertension type: primary hypertension Right flank pain R10.9 Vertigo R42 Obesity (BMI 30-39.9) E66.9 Time Spent (min) 30 Comment Time spent on chart review, H&P, Patient education, orders. Assessment & Plan Assessment & Plan (1) HTN (hypertension): Comment: BP today was 130/74 Code(s): I10 - Essential (primary) hypertension Category: Medical Qualifiers: Hypertension type: primary hypertension Qualified Code(s): I10 - Essential (primary) hypertension Plan: Controlled. Will get labs. Patient will continue current medications. Will monitor. Patient will follow up in 4 months. (2) Right flank pain: Code(s): R10.9 - Unspecified abdominal pain Category: Medical Plan: Will try Diclofenac gel. Patient to follow up in 4 months or sooner if symptoms persist or worsen. May need PT (3) Vertigo: Code(s): R42 - Dizziness and giddiness Category: Medical Plan: Resolved. Will watch for now. Patient to call if symptoms come back. May need Meclizine or PT (4) Obesity (BMI 30-39.9): Comment: BMI today was 37.9 Code(s): E66.9 - Obesity, unspecified Category: Medical Plan: Patient has gained 5 lbs of weight Diet and exercise were reviewed. Plan Plan Patient was informed and verbally consented to the use of an ambient scribe for clinic note documentation during this visit. 1. Vertigo The patient's recent severe episode of vertigo, which has now resolved, was consistent with labyrinthitis or benign paroxysmal positional vertigo (BPPV). If symptoms recur, the patient was advised to notify the clinic, at which point a prescription for meclizine can be provided to help lessen the symptoms. The Mary maneuver was also discussed as a potential treatment option, which she could attempt on her own or through physical therapy. 2. Back Pain The back pain is suspected to be muscular in origin. A prescription for topical diclofenac (Voltaren) gel was sent to the pharmacy. The patient was instructed to apply it at night and was informed that it is available [id number] if her insurance does not cover it. If the pain does not resolve, physical therapy will be considered. 3. Hypertension The patient's blood pressure is well controlled on her current regimen of lisinopril taken at night. Continue current management. Discussion Notes I discussed with the patient that her recent, severe episode of vertigo was likely due to labyrinthitis or BPPV (ear crystals) and has fortunately resolved. I advised her that if it returns, we can prescribe meclizine for symptom relief and consider the Mary maneuver. We also discussed that her back pain appears to be muscular. I have prescribed topical Voltaren gel and recommended physical therapy if it does not improve. I have ordered routine lab work and provided her with the necessary order for her upcoming bone density scan. We will follow up in four months. Patient Instructions - For your back pain, apply the Voltaren gel at night before bed. If your insurance does not cover the prescription, you can purchase it [id number]. - If the back pain does not get better, we can consider physical therapy. - If your intense dizziness (vertigo) comes back, please let me know. We can prescribe a medication called meclizine and discuss a special head-turning exercise (Mary maneuver) to help. - Please get your blood work done. You do not need to fast (go without eating) beforehand. - Remember to bring the printed order I gave you to your bone density scan appointment. - Please schedule a follow-up appointment in four months, around June. Orders: Orders Complete Blood Count no Diff Today I10 - Essential (primary) hypertension, R10.9 - Unspecified abdominal pain, Z79.899 - Other half-way (current) drug therapy Comprehensive Met. Panel Today I10 - Essential (primary) hypertension, R10.9 - Unspecified abdominal pain, Z79.899 - Other exterminator helper (current) drug therapy TSH reflex Free T4 Today I10 - Essential (primary) hypertension Lipid Panel Today Z13.220 - Encounter for screening for lipoid disorders Vitamin D 25-OH Total Today Z00.00 - Encounter for general adult medical examination without abnormal findings Medications: New diclofenac sodium 1% (Voltaren Arthritis Pain) apply to single elbow, wrist or hand; for hand includes palm/fingers/back of hand 2 grams topical QID 100 grams 6RF for back pain Changed From fluticasone propionate 50 mcg/actuation (Flonase Allergy Relief) administer into each nostril 2 sprays intranasal DAILY 16 grams 6RF for allergies To fluticasone propionate 50 mcg/actuation (Flonase Allergy Relief) administer into each nostril 2 sprays intranasal DAILY PRN for allergies
[2025-03-15 08:53] VITALS: BP 130/76; PULSE 91; RESP 18; TEMP 36.8; O2SAT 96; BMI 37.9
== END 2025-03-15 09:19 | disposition home or self-care (01) ==
LOC: HO.HMCHD 08:45
PROVIDERS: PCP Physician Assistant Medical; Visit Provider Physician Assistant Medical
DX: I10 Essential (primary) hypertension (principal); R10.9 Unspecified abdominal pain; R42 Dizziness and giddiness; E66.9 Obesity, unspecified

== ENCOUNTER 2025-03-23 08:53 | Outpatient (REF) | payer BC, SELFPAY ==
--- OUTSIDE RECORDS SUMMARY | 2023-11-18 04:00 | XMS_ITS ---
Author Organization [facility] Address [address] [place] [address] Care Team Providers Care Mosaic Worker Name Role Phone Katelyn (RETIRED) Geovanny GALLEGO Primary Care Provide r Unavailable Braydon Ashton Jr [phone] REASON FOR VISIT screening,fam hx colon ca Encounters Encounter Location Date Provider Diagnosis [facility] [place] [address] [place] [phone] 11/18/2023 Braydon Ashton Jr Colon cancer screening Z12.11 and Family history of colon cancer Z80.0 Assessments Encounter Date Diagnosis (ICD Code) Assessment Notes Treatment Notes Treatment Clinical Notes Section Notes 11/18/2023 Colon cancer screening (ICD-10 - Z12.11) 11/18/2023 Family history of colon cancer (ICD-10 - Z80.0) Plan Of Treatment No Information Progress Notes * FLORIDALMA TORRES RDOB:[birth year] (69 yo F)Acc No.[id number]:11/18/2023 COLON WITH MAC Patient: Jody GONSALVESFLORIDALMA FERRARI Provider: Aster Ashton MD :1955 A ge:68 Y S ex:Female Date:11/18/2023 Address: [address] [facility] Pcp:Geovanny Zepeda (RETIRED )MD Subjective: * Chief Complaints: * S creening,fam hx colon ca Assessment: * Assessment: 1. C olon cancer screening - Z12.11 (Primary) 2 . F amily history of colon cancer - Z80.0 Plan: * Procedure Codes: 4 5378 DIAGNOSTIC COLONOSCOPY Billing Information: * Procedure Codes: 14346 DIAGNOSTIC COLONOSCOPY. * The named appointment provid er may or may not be the originator of this progress note, and it is not deemed complete until electronically signed by the appointment provider. Sign off status: Pending * Provider: Aster Ashton MD Date: 0 11/18/2023 Generated for Cesar gray/Abigail/Shaziaitting on: 05/23/2024 09:25 AM EST
--- OUTSIDE RECORDS SUMMARY | 2024-07-13 03:30 | XMS_ITS ---
Author Organization [facility] Address [address] [place] [address] Care Team Providers Care Dental Patient Coordinator Name Role Phone Geovanny Zepeda MD Primary Care Provider Luh Kulkarni [phone] Encounters Encounter Location Date Provider Diagnosis [facility] [address] [place] [address] 07/13/2024 Luh Tamayo Plan Of Treatment No Information Progress Notes * Arnaldo TORRESOB: [birth year] (69 yo F)Acc No.[id number]:07/13/2024 Progress Notes Patient: Savanah OLIVEROS Provider: Ruiz Tamayo DPM :1955 A ge:68 Y S ex:Female Date:07/13/2024 Address:[address], [place] Pcp:Geovanny Zepeda MD Subjective: * Chief Complaints: * * Medical History: Objective: * Vitals: Assessment: Plan: * Treatment: * Images: * The named appointment provid er may or may not be the originator of this progress note, and it is not deemed complete until electronically signed by the appointment provider. Sign off status: Pending * Provider: Ruiz Tamayo DPM Date: 0 07/13/2024 Generated for Printi ng/Faannitag/eTransmitting on: 05/23/2024 09:24 AM EST
--- OUTSIDE RECORDS SUMMARY | 2024-07-20 04:30 | XMS_ITS ---
Author Organization [facility] Address [address] [facility] [place] [address] Care Team Providers Care Salvage Worker Name Role Phone Geovnany Zepeda MD Primary Care Provider Luh Kulkarni Unavailable [phone] Allergies Allergen (clinical drug ingredient) Drug/Non Drug Allergy documented on EMR Reaction Allergy Type Onset Date Status Latex Latex Unknown Allergy Active REASON FOR VISIT Dr Steve Medications Medication SIG (Take, Route, Fr equency, Duration) Notes Start Date End Date Status Fluticasone Propionate Active Lisinopril 5 MG 2 tablets Orally Once a day 2024 Active Social History Tobacco Use: Social History Observation Description Date Details (start date - stop date) Never Smoker NA - NA Tobacco use other than smoking: Question Answer Notes Are you an other tobacco user? No Tobacco Control (Standard) Question Answer Notes Tobacco use: Nonsmoker Additional Findings: Tobacco non-user Current no nsmoker AUDIT-C (Standard) Question Answer Notes Did you have a drink containing alcohol in the p ast year? No Points 0 Interpretation Negative Encounters Encounter Location Date Provider Diagnosis [facility] [address] [place] [address] 07/20/2024 Luh Tamayo Plan Of Treatment No Information Progress Notes * LIONELVEGAAixaLilaOB: [birth year] (69 yo F)Acc No.[id number]:07/20/2024 Progress Notes Patient: Jody GONSALVESVEGASavanah Provider: Ruiz Tamayo DPM :1955 A ge:68 Y S ex:Female Date:07/20/2024 Address: [address] [place] , [place] Pcp:Geovanny Zepeda MD Subjective: * Chief Complaints: * [address]. * ROS: G eneral/Constitutional: Nausea d enies. V omiting d enies. H juaquin Thirst d enies. L oss appetite d enies. C hills d enies. F atigue d enies.?Fever d enies. N ight Sweats d enies. U nexplained weight loss d enies. U nexplained weight gain d enies. H EENTM: Dentures d enies. D izziness a dmits. G lasses/contacts a dmits. R etinopathy d enies. B lurred/double vision d enies. T MJ?denies. D ischarge/drainage d enies. I mplants d enies. S ore throat d enies. D ental implants d enies. H elizabeth of hearing d enies. D ifficulty chewing/swallowing/speaking d enies. N ose bleeds d enies. S ore mouth d enies. ? R espiratory: On Oxygen d enies. P neumonia/pleurisy d enies.?Bronchitis a dmits. E mphysema d enies. C oughing a dmits. C ough blood?denies. S hortness of breath d enies. W heezing d enies. C ardiovascular: Pacemaker d enies. M FIELD SERVICE SPECIALIST d enies. W PW d enies. C HF d enies. H eart attack d enies. S eptal defect d enies. R apid beat d enies. C hest pain d enies. A trial Fib. d enies. M urmur/Palpitations d enies. G astrointestinal: Hemorrhoids a dmits. S tomach/Abdominal pain d enies. D ark blood stool d enies. I rritable bowel d enies. C onstipation d enies. D iarrhea d enies. H ematology: Swelling d enies. C lots d enies. V aricose Veins d enies. B ruising d enies. B leeding problem d enies. G enitourinary: Blood urine d enies. F requent/Painfu/urination/bladder control d enies. K idney stones d enies. I nfection (UTI) d enies. N ephropathy d enies. s ex trans dis (STD) d enies. P rostate d enies. M usculoskeletal: Hammertoes d enies. B unions d enies. B ack Pain d enies. M uscle Cramps/ Resting d enies. M uscle cramps / walking d enies.?Generalized aches and pains a dmits. W eakness d enies. I nteg.: Liu d enies. S cars d enies. C orns/calluses?denies. I ngrown nails a dmits. P ainful nails d enies. O pen Sores d enies. R ashes d enies. N eurologic: Difficulty sleeping d enies. B rain disorder d enies. N umbness d enies. B alance trouble d enies. C onfusion d enies. F ainting/blackouts d enies. T ingling d enies. T remors d enies. * Medical History: A rthritis, Broken bones, Covid-19, Gall bladder problems, High Blood Pressure, Chicken pox. * Surgical History: T onsil 1975, Gall bladder . * Family History: M other: , diagnosed with Other malignant neoplasm of unspecified site, Diabetic - NIDDM, Unspecified essential hypertension, Family history of arthritis. F ather: . * Social History: T obacco Use: T obacco use other than smoking A re you an other tobacco user? N o Tobacco Control (Standard) T obacco use: N onsmoker A dditional Findings: Tobacco non-user C urrent nonsmoker D rugs/Alcohol: D rugs H ave you used drugs other than those for medical reasons in the past 12 months? N o M iscellaneous: C affeine: yes, frequency:. Children: yes, 1. 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 D rug/Alcohol: A ASHLEY-C (Standard) D id you have a drink containing alcohol in the past year? N o P oints 0 I nterpretation N egative * Medications: T aking Fluticasone Propionate , Taking Lisinopril 5 MG Tablet 2 tablets Orally Once a day * Allergies: L atex. Objective: * Vitals: Assessment: Plan: * Treatment: * Images: * The named appointment provid er may or may not be the originator of this progress note, and it is not deemed complete until electronically signed by the appointment provider. Sign off status: Pending * Provider: Ruiz Tamayo DPM Date: 0 07/20/2024 Generated for Cesar gray/Abigail/Mellisa on: 05/23/2024 09:25 AM EST
--- NOTE | ~2025-03-23 | MM_ITS ---
EXAMINATION: DXA BONE DENSITY AXIAL HISTORY: Z78.0 - Asymptomatic menopausal state TECHNIQUE: [employer] Dual energy absorptiometry (DEXA) of the lumbar spine, total left hip, and femoral neck was performed. COMPARISON: There are no prior studies for comparison. FINDINGS: The bone mineral density of the lumbar spine is 1.160 g/cm2, corresponding to a T-score of -0.2, and a Z-score of 0.3. This is indicative of normal bone mineral density. The bone mineral density of the left total hip is 0.840 g/cm2, corresponding to a T-score of -1.3, and a Z-score of -0.8. This is indicative of osteopenia. The bone mineral density of the left femoral neck is 0.779 g/cm2, corresponding to a T-score of -1.9, and a Z-score of -1.0. This is indicative of osteopenia. FRACTURE RISK: The FRAX index suggests a risk of major osteoporotic fracture of 9.7%, and of hip fracture 1.4%. MM/XR DEXA axial skeleton IMPRESSION: Based on bone mineral density, and according to World Health Organization (WHO) criteria, the diagnosis is consistent with osteopenia. Statistically, 68% of repeat scans fall within 1 SD (+/- 0.010 g/cm2 for AP spine L1-L4) and 1 SD (+/- 0.012 g/cm2 for femur total) FRAX is a trademark of the [employer] [place] [employer] Met[employer] Bone Disease, a World Health Organization (WHO) Collaborating Center. Electronically signed by: Kevin Jolly MD 03/23/2025 09:54 AM [facility]
--- OUTSIDE RECORDS SUMMARY | 2025-03-23 09:24 | XMS_ITS | Patient Health Record ---
Author Organization [facility] Address [address] [facility] [place] [address] Care Team Providers Care Blanket Maker Name Role Phone Geovanny Zepeda MD Primary Care Provider Luh Kulkarni Unavailable [phone] Allergies Allergen (clinical drug ingredient) Drug/Non Drug [...] primary osteoarthritis of the ankle and/or foot (216644705) Osteoarthritis of right ankle and foot (M19.071) Active confirmed Vital Signs Blood pressure diastolic 80 mm Hg 09/16/2024 Height 5ft 5in in 09/16/2024 Blood pressure systolic 127 mm Hg 09/16/2024 Weight 200 lbs 09/16/2024 BMI 33.28 kg/m2 09/16/2024 Encounters Encounter Location Date Provider Diagnosis [address] [address] 07/20/2024 Luh Perica Pain in left foot M79.672 ; Posterior tibial tendinitis of left lower extremity M76.822 ; Hypertrophy of bone, left ankle and foot M89.372 ; Flat foot [pes planus] (acquired), left foot M21.42 and Osteoarthritis of right ankle and foot M19.[address] [address] 09/16/2024 Luh Perica Pain in left foot M79.672 ; Posterior tibial tendinitis of left lower extremity M76.822 ; Hypertrophy of bone, left ankle and foot M89.372 and Flat foot [pes planus] (acquired), left foot M21.[address] [address] 05/06/2024 Luh Tamayo [address] [address] 09/16/2024 Luh Tamayo Assessments Encounter Date Diagnosis [...] Insured Coverage Start Date Coverage End Date [employer] [id number] [place] [address] [id number] Savanah Holden Self - patient is the insured 4 Medical (General) History Medical History History ICD Code Arthritis Broken bones covid-19 Gall bladder problems High Blood Pressure Chicken pox Surgical History Surgery Date(Month/Year) Tonsils 1975 Gall bladder
--- OUTSIDE RECORDS SUMMARY | 2025-03-23 09:25 | XMS_ITS | Patient Health Record ---
Author Organization [facility] Address [address] [place] [address] Care Team Providers Care Emergency Service Restorer Name Role Phone Katelyn (RETIRED) Geovanny GALLEGO Primary Care Provide r Unavailable Braydon Ashton Jr Unavailable Allergies No Known Allergies Reason For Referral No Information Medications Medication SIG (Take, Route, Frequency, Duration) Notes Start Date End Date Status MiraLax (colon prep) 17 GM/SCOOP Powder mixed with Gatorade or Crystal Light Orally begin at 5:00 p.m. 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 Problems Problem Type SNOMED Code ICD Code Onset Dates Problem Status W/U Status Risk Notes Problem Colon cancer screening (594599179) Colon cancer screening (Z12.11) Active confirmed Problem Pre-procedure evaluation check (998210716) Encounter for other preprocedural examination (Z01.818) Active confirmed Problem Bleeding hemorrhoids (03312602) Bleeding hemorrhoids (K64.9) Active confirmed Problem Family history of malignant neoplasm of gastrointestinal tract (953008480) FH: colon cancer (Z80.0) Active confirmed Plan Of Treatment Future Test Test Name Order Date COLONOSCOPY 02/09/2015 COLONOSCOPY 10/23/2023 Insurance Providers Payer Name Payer Address Payer Phone Subscriber Number Group Number Insured Name Patient Relationship to Insured Coverage Start Date Coverage End Date [facility] [address] [place], [place] [id number] FLORIDALMA PENNY Self - patient is the insured Medical (General) History Medical History History ICD Code Hypertension Seasonal allergies Hemorrhoids Surgical History Surgery Date(Month/Year) tonsillectomy cholecystectomy
== END 2025-03-23 08:54 | disposition home or self-care (01) ==
LOC: HO.MAMMO 08:53
PROVIDERS: PCP Physician Assistant Medical; Visit Provider Physician Assistant Medical
DX: Z78.0 Asymptomatic menopausal state (principal)
CPT/HCPCS: 77080

== ENCOUNTER → 2025-03-23 09:15 | Outpatient (BNV) | payer BC, SELFPAY | PROVIDERS: PCP Physician Assistant Medical; Visit Provider Radiology Diagnostic Radiology | DX: E28.39 Other primary ovarian failure (principal) | CPT/HCPCS: 77080 ==

== ENCOUNTER 2025-04-04 10:48 | Outpatient (REF) | payer BC, SELFPAY ==
[2025-04-04 13:08] LABS: Hematocrit 43.7 % (37.0-47.0); Hemoglobin 13.7 g/dl (12.0-16.0); Mean Corpuscular HGB Conc 31.4 g/dl (31.0-35.0); Mean Corpuscular Hemoglobin 28.3 pg (27.0-33.0); Mean Corpuscular Volume 90.3 fL (80.0-98.0); NRBC Abs Auto 0.000 X10*3/uL (0.0-0.012); NRBC Pct Auto 0.0 /100WBC (0.0-0.2); Platelet Count 229 X10*3/uL (160-400); Red Blood Count 4.84 X10*6/uL (4.20-5.50); White Blood Count 9.4 X10*3/uL (4.8-10.8)
[2025-04-04 13:32] LABS: Alanine Aminotransferase 31 U/L (0-31); Albumin Level 4.3 g/dL (3.5-5.0); Alkaline Phosphatase 63 U/L (39-117); Anion Gap 9 (12-20); Aspartate Amino Transferase 31 U/L (5-31); Blood Urea Nitrogen 9 mg/dL (9-16); Calcium 9.1 mg/dL (8.4-10.2); Carbon Dioxide 29 mmol/L (22-29); Chloride 108 mmol/L (96-108); Cholesterol 164 mg/dL (<200); Estimated Glomerular Filt Rate > 60; HDL Cholesterol 34 mg/dL (>40); Potassium 4.4 mmol/L (3.3-5.1); Sodium 142 mmol/L (135-145); Total Protein 7.4 g/dL (6.5-8.0); Triglycerides 222 mg/dL (<150)
== END 2025-04-04 10:49 | disposition home or self-care (01) ==
LOC: HO.10HDL 10:48
PROVIDERS: Visit Provider Physician Assistant Medical
DX: Z00.00 Encounter for general adult medical examination without abnormal findings (principal); Z13.220 Encounter for screening for lipoid disorders; I10 Essential (primary) hypertension; R10.9 Unspecified abdominal pain; Z79.899 Other long term (current) drug therapy
CPT/HCPCS: 36415; 80053; 80061; 82306; 84443; 85027